=== PATIENT | male | born 1985 ===

== ENCOUNTER 2017-11-14 13:48 | Emergency (ER) | payer OTHER ==
[2017-11-14 14:10] VITALS: BP 116/72
--- NOTE | 2017-11-14 15:02 | RAD ---
INDICATION: Tailbone and right-sided pain 3 days after a fall COMPARISON: None. TECHNIQUE: 5 views of the lumbar spine were obtained. FINDINGS: The vertebra are in normal alignment. No fracture is seen. Disc spaces appear maintained. IMPRESSION: No evidence of fracture or subluxation.
--- NOTE | 2017-11-14 16:00 | UC ---
Back Pain HPI - HPI Summary HPI Summary: Patient presents to the with low back pain after a fall on the ice 2 days ago. He states the pain is located more to right side of his buttocks and is concerned with a fracture. The pain has been improving x 2 days, but since he is still having an aching discomfort, wanted to be sure it was not fractured. Aleve with improvement, direct pressure causing worsening symptoms. He has been otherwise healthy and takes no medications. Denies blood thinners. Denies numbness, tingling, color or temperature changes. Ambulating well. Denies B/B dysfunction. - History of Current Complaint Chief Complaint: UCBackPain Stated Complaint: BACK PAIN Time Seen by Provider: 11/14/17 14:28 Hx Obtained From: Patient Onset/Duration: Sudden Onset Timing: Constant Severity Initially: Moderate Severity Currently: Moderate Pain Intensity: 4 Pain Scale Used: 0-10 Numeric Back Pain: Is Discrete @ - right sided buttock pain Aggravating Factor(s): Movement Alleviating Factor(s): Rest Full Body (No Head): 1 - pain without swelling or ecchymosis - Risk Factors AAA Risk Factors: Negative TAD Risk Factors: Negative Cauda Equina Risk Factors: Negative Epidural Abscess Risk Factors: Negative - Allergies/Home Medications Allergies/Adverse Reactions: Allergies Allergy/AdvReac Type Severity Reaction Status Date / Time No Known Allergies Allergy Verified 11/14/17 14:10 Home Medications: Home Medications Naproxen Sodium [Naproxen Sodium 220 mg] 220 mg PO 11/14/17 [History] Otc Pain Patch 11/14/17 [History] PMH/Surg Hx/FS Hx/Imm Hx Previously Healthy: Yes - Surgical History Surgical History: None - Social History Occupation: Employed Full-time Lives: With Family Alcohol Use: Occasionally Substance Use Type: None Smoking Status (MU): Never Smoked Tobacco Review of Systems Constitutional: Negative Skin: Negative Respiratory: Negative Cardiovascular: Negative Motor: Negative Neurovascular: Negative Musculoskeletal: Arthralgia Neurological: Negative Psychological: Negative Is Patient Immunocompromised?: No All Other Systems Reviewed And Are Negative: Yes Physical Exam Triage Information Reviewed: Yes Appearance: Well-Appearing, Well-Nourished Vital Signs: Initial Vital Signs Temp 98.6 F 11/14/17 14:05 Pulse 87 11/14/17 14:05 Resp 18 11/14/17 14:05 BP 116/72 11/14/17 14:05 Pulse Ox 100 11/14/17 14:05 Vital Signs Reviewed: Yes Eye Exam: Normal Eyes: Positive: Conjunctiva Clear Neck exam: Normal Neck: Positive: Supple, No Lymphadenopathy Respiratory Exam: Normal Respiratory: Positive: Chest non-tender, Lungs clear Cardiovascular Exam: Normal Cardiovascular: Positive: RRR Musculoskeletal: Positive: Strength Intact Neurological Exam: Normal Neurological: Positive: Alert Psychological: Positive: Normal Response To Family, Age Appropriate Behavior Back Pain Course/Dx - Course Course Of Treatment: ron states the pain is located more to right side of his buttocks and is concerned with a fracture. The pain has been improving x 2 days , but since he is still having an aching discomfort, wanted to be sure it was not fractured. Aleve with improvement, direct pressure causing worsening symptoms. He has been otherwise healthy and takes no medications. Denies blood thinners. Denies numbness, tingling, color or temperature changes. Ambulating well. Denies B/B dysfunction. Lumbarsacral xray obtained which shows no acute fracture or findings. I have advised aleve and follow up with Dr. Tejeda next week. If symptoms persist, or numbness, tingling or bladder or bowel function develops - should return to the or ED immediately. - Differential Dx/Diagnosis Provider Diagnoses: Hip Contusion Discharge - Discharge Plan Condition: Stable Disposition: HOME Patient Education Materials: Contusion in Adults (ED) Referrals: Pritesh Tejeda MD [Primary Care Provider] - Additional Instructions: Ibuprofen 600mg three times daily
== END 2017-11-14 15:30 | disposition home or self-care (01) ==
LOC: UCEAST 13:48
DX: S70.00XA Contusion of unspecified hip, initial encounter (principal); W00.0XXA Fall on same level due to ice and snow, initial encounter; Y92.9 Unspecified place or not applicable
CPT/HCPCS: 72110; 99211; G0463